=== PATIENT | female | born 1995 ===

== ENCOUNTER 2018-05-28 13:37 | Outpatient (CLI) | payer BC ==
--- NOTE | 2018-05-28 15:49 | ULT ---
RIGHT BREAST ULTRASOUND: Indication: Palpable abnormality within the upper aspect of the right breast and right axilla. FINDINGS: No suspicious sonographic abnormality seen within the palpable region of interest. IMPRESSION: No suspicious sonographic abnormality seen within the region of palpable region of interest in the ri ght axilla. Refer this patient back to order clinician. Negative imaging should never deter biopsy if finding on clinical exam are suspicious. Patient was counseled on finding prior to leaving the [facility]. POS: OFF
== END 2018-05-28 13:38 | disposition home or self-care (01) ==
LOC: BICULT 13:37
PROVIDERS: ATTEND Obstetrics & Gynecology
DX: N63.12 Unspecified lump in the right breast, upper inner quadrant (principal)